=== PATIENT | male | born 2000 | race Caucasian/White ===

== ENCOUNTER 2019-04-03 11:40 | Emergency (ER) | payer BC ==
[2019-04-03 12:11] VITALS: BP 106/50
--- NOTE | 2019-04-03 12:36 | UC ---
Throat Pain/Nasal Angel Luis HPI - HPI Summary HPI Summary: Sore throat started yesterday. Woke up with worsening pain this AM. Painful to swallow. Hot/cold chills. Headache. - History of Current Complaint Chief Complaint: UCGeneralIllness Stated Complaint: THROAT COMPLAINT Hx Obtained From: Patient Onset/Duration: Sudden Onset, Lasting Days Severity: Severe Pain Intensity: 9 Associated Signs & Symptoms: Positive: Dysphagia - Allergies/Home Medications Allergies/Adverse Reactions: Allergies Allergy/AdvReac Type Severity Reaction Status Date / Time No Known Allergies Allergy Verified 04/03/19 12:06 Home Medications: Home Medications Ibuprofen TAB* [Motrin TAB* 600 MG] 600 mg PO Q6H PRN 04/03/19 [History Confirmed 04/03/19] PMH/Surg Hx/FS Hx/Imm Hx Previously Healthy: Yes - Surgical History Surgical History: Yes Surgery Procedure, Year, and Place: R knee - Family History Known Family History: Positive: Respiratory Disease - Social History Alcohol Use: Occasionally Substance Use Type: None Smoking Status (MU): Never Smoked Tobacco Review of Systems All Other Systems Reviewed And Are Negative: Yes ENT: Positive: Sore Throat Respiratory: Positive: Negative Cardiovascular: Positive: Negative Gastrointestinal: Positive: Negative Genitourinary: Positive: Negative Motor: Positive: Negative Neurovascular: Positive: Negative Musculoskeletal: Positive: Negative Neurological: Positive: Headache Psychological: Positive: Negative Is Patient Immunocompromised?: No Physical Exam Triage Information Reviewed: Yes Appearance: Well-Appearing, Well-Nourished, Pain Distress Vital Signs: Initial Vital Signs Temp 99.2 F 04/03/19 12:06 Pulse 89 04/03/19 12:06 Resp 16 04/03/19 12:06 BP 106/50 04/03/19 12:06 Pulse Ox 100 04/03/19 12:06 Vital Signs Reviewed: Yes Eye Exam: Normal ENT: Positive: Pharyngeal erythema - left tonsil is erythemic and exudate is present. +1 in size, right tonisl unaffected., Tonsillar exudate - left Dental Exam: Normal Neck exam: Normal Neck: Positive: Supple, Nontender, Enlarged Nodes @ - left tonsilar Respiratory Exam: Normal Respiratory: Positive: Chest non-tender, Lungs clear, Normal breath sounds Cardiovascular Exam: Normal Cardiovascular: Positive: RRR, No Murmur, Pulses Normal Abdominal Exam: Normal Bowel Sounds: Positive: Present Musculoskeletal Exam: Normal Neurological Exam: Normal Psychological Exam: Normal Skin Exam: Normal Throat Pain/Nasal Course/Dx - Course Course Of Treatment: hx obtained, exam performed ,meds reviewed, rapid strep was negative but treated for start of a possible abcess. pain meds and ABX given, advised to report to Er if not improving in the nest 24 0 48 hours. - Differential Dx/Diagnosis Differential Diagnosis/HQI/PQRI: Laryngitis, Peritonsillar Abscess, Pharyngitis , Tonsillitis Provider Diagnosis: Tonsillitis Discharge - Sign-Out/Discharge Documenting (check all that apply): Patient Departure All imaging exams completed and their final reports reviewed: No Studies - Discharge Plan Condition: Stable Disposition: HOME Prescriptions: Clindamycin Cap(NF) [Clindamycin Cap 300 mg Cap(NF)] 300 mg PO TID #30 cap predniSONE [Prednisone 20 MG TAB] 20 mg PO DAILY #18 tablet Patient Education Materials: Tonsillitis (ED) Referrals: No Primary Care Phys,NOPCP [Primary Care Provider] - Additional Instructions: 1. take the medication as prescribed. 2. Salt water gargles frequently 3. use the 400 mg of ibuprofen with 1000 mg of tylneol every 8 hours. 4. Clear fluids and eat as tolerated 5. If you are not improving in the next 48 hours, you develop a fever, or any fullness in your throat or difficulty breathing or increased difficulty swallowing even liquids report to the ER. - Billing Disposition and Condition Condition: STABLE Disposition: Home
[2019-04-03] MEDS ORDERED: cefTRIAXone VIAL(*) 1,000 MG VIAL IM ONE (12:55)
[2019-04-03] MEDS ORDERED: Ibuprofen TAB* 400 MG PO ONE (12:55)
[2019-04-03] MEDS ORDERED: Lidocaine 1% MPF* 2 ML VIAL INJ ONE (12:56)
[2019-04-03] MEDS ORDERED: Acetaminophen TAB* 325 MG PO ONE (12:56)
== END 2019-04-03 13:28 | disposition home or self-care (01) ==
LOC: UCCORT 11:40
DX: J03.90 Acute tonsillitis, unspecified (principal)
CPT/HCPCS: 87651; 96372; 99202; A9270-GY; G0463; J0696